=== PATIENT | female | born 1930 | race Caucasian/White ===

== ENCOUNTER → 2016-10-07 | Outpatient (CLI) | payer MEDICARE, OTHER ==
[2016-10-07 08:40] LABS: BASOPHILS % (AUTO) 0 % (0-2); EOSINOPHILS # (AUTO) 0.1 10^3uL; EOSINOPHILS % (AUTO) 2 % (0-4); LYMPHOCYTES # (AUTO) 2.4 X10^3; MEAN CORPUSCULAR HEMOGLOBIN 30.9 PG (26.0-34.0); MEAN CORPUSCULAR HGB CONC 34.6 g/dL (31.0-37.0); MEAN CORPUSCULAR VOLUME 89 FL (80-100); MEAN PLATELET VOLUME 9.6 FL (6.0-9.5); MONOCYTES # (AUTO) 0.5 X10^3; MONOCYTES % (AUTO) 10 % (3-11); NEUTROPHILS # (AUTO) 2.4 X10^3; NEUTROPHILS % (AUTO) 44 % (51-67); PLATELET COUNT 140 10^3uL (150-450); WHITE BLOOD COUNT 5.41 10^3uL (4.0-11.0)
[2016-10-07 08:47] LABS: ALBUMIN 4.1 g/dL (3.4-5.0); CALCULATED IONIZED CALCIUM 4.4 mg/dL (3.8-4.6); TOTAL PROTEIN 6.6 g/dL (6.4-8.5)
[2016-10-07 08:55] LABS: BILIRUBIN,URINE Negative (Negative); CLARITY,URINE Clear; COLOR,URINE Yellow; GLUCOSE, URINE (UA) Negative (Negative); LEUKOCYTE ESTERASE ,URINE Negative (Negative); UROBILINOGEN,URINE 0.2 mg/dL (0.2-1.0)
[2016-10-07 10:01] LABS: URINE CENTRIFUGED VOLUME 12 mL
== END ==
LOC: LAB 07:28
PROVIDERS: ATTEND Family Medicine
DX: E16.1 Other hypoglycemia (principal); I34.1 Nonrheumatic mitral (valve) prolapse; R60.0 Localized edema; M81.0 Age-related osteoporosis without current pathological fracture; F41.1 Generalized anxiety disorder; K58.9 Irritable bowel syndrome, unspecified; F33.8 Other recurrent depressive disorders; G47.09 Other insomnia; I73.00 Raynaud's syndrome without gangrene; M25.511 Pain in right shoulder; R05 Cough; Z13.6 Encounter for screening for cardiovascular disorders
CPT/HCPCS: 36415; 80053; 80061; 81003; 81015; 84443; 85025